=== PATIENT | male | born 1995 ===

== ENCOUNTER 2017-12-22 15:08 | Emergency (ER) | payer BC ==
[2017-12-22 16:41] VITALS: BP 133/77
--- NOTE | 2017-12-22 17:07 | ED ---
GI/ HPI - HPI Summary HPI Summary: 22 yr old with sore throat and also having blood in urine since yesterday. He denies abdominal pain or flank pain. He has been feeling tired since yesterday. 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 His office is closed today due to weather. The patient states three years ago he developed the nephropathy and that he is a [employer] student who is from the [facility]. - History of Current Complaint Chief Complaint: UCGeneralIllness Time Seen by Provider: 12/22/17 16:55 Stated Complaint: SORE THROAT/BLOOD IN URINE Pain Intensity: 5 - Allergy/Home Medications Allergies/Adverse Reactions: Allergies Allergy/AdvReac Type Severity Reaction Status Date / Time No Known Allergies Allergy Verified 12/22/17 16:40 Home Medications: Home Medications Lisinopril TAB* [Prinivil TAB*] 5 mg PO DAILY 12/22/17 [History Confirmed ] [place]-3 Fatty Acids/Fish Oil [Fish Oil 1,000 mg Capsule] 1 each PO DAILY [History Confirmed 12/22/17] PMH/Surg Hx/FS Hx/Imm Hx EENT History: Reports: Other - sore throat - Surgical History Surgery Procedure, Year, and Place: right knee surgery X2 Infectious Disease History: No Infectious Disease History: Denies: Traveled Outside the in Last 30 Days - Family History Known Family History: Positive: None - Social History Occupation: Student Lives: Dormitory/Roommates Alcohol Use: Occasionally Substance Use Type: Reports: None Smoking Status (MU): Never Smoked Tobacco Review of Systems Positive: Fatigue. Negative: Fever, Chills Positive: Sore Throat. Negative: Nasal Discharge Negative: Shortness Of Breath, Cough Positive: hematuria. Negative: burning, dysuria, discharge, frequency, flank pain, incontinence, pain, urgency All Other Systems Reviewed And Are Negative: Yes Physical Exam Triage Information Reviewed: Yes Vital Signs On Initial Exam: Initial Vitals Temp Pulse Resp BP Pulse Ox 97.8 F 82 16 133/77 100 12/22/17 16:34 12/22/17 16:34 12/22/17 16:34 12/22/17 16:34 12/22/17 16:34 Vital Signs Reviewed: Yes Appearance: Positive: Well-Appearing, No Pain Distress Head/Face: Positive: Normal Head/Face Inspection Eyes: Positive: EOMI ENT: Positive: Pharyngeal erythema, TMs normal. Negative: Nasal congestion Neck: Positive: Nontender Respiratory/Lung Sounds: Positive: Clear to Auscultation, Breath Sounds Present Cardiovascular: Positive: RRR. Negative: Murmur Abdomen Description: Positive: Nontender Musculoskeletal: Positive: Strength/ROM Intact Neurological: Positive: Sensory/Motor Intact, Alert, Oriented to Person Place, Time, CN Intact II-III Psychiatric: Positive: Normal - Meg Coma Scale Best Eye Response: 4 - Spontaneous Best Motor Response: 6 - Obeys Commands Best Verbal Response: 5 - Oriented Coma Scale Total: 15 Diagnostics - Vital Signs Vital Signs Temp Pulse Resp BP Pulse Ox 12/22/17 16:34 97.8 F 82 16 133/77 100 - Laboratory Lab Statement: Any lab studies that have been ordered have been reviewed, and results considered in the medical decision making process. GIGU Course/Dx - Course Course Of Treatment: 22 yr old with sore throat and hematuria. I recommend he go to the ER in [place] for labs and further work up given his past history of IgA neprhopathy. Rapid strep positive. He needs to go to the ER to have lab eval and possible admission, antibiotics. the patient was offered an ambulance but feels fine to drive. The patient was discussed with Dr Odell the ED attending at [facility], and he will work up the patient further. He is aware of the IgA nephropathy and also the positive rapid strep and hematuria. - Diagnoses Provider Diagnoses: Strep pharyngitis, Hematuria Discharge - Discharge Plan Condition: Good Disposition: HOME Patient Education Materials: Strep Throat (ED), Hematuria (ED) Referrals: Non Staff,Doctor [Primary Care Provider] - Additional Instructions: GO to the [place] ER now. Dr Odell the ER attending is aware you are coming for further evaluation
== END 2017-12-22 17:25 | disposition home or self-care (01) ==
LOC: UCCORT 15:08
DX: J02.0 Streptococcal pharyngitis (principal); R31.9 Hematuria, unspecified
CPT/HCPCS: 81003; 87086; 87651; 99202; G0463